=== PATIENT | male | born 1930 | race Caucasian/White ===

== ENCOUNTER 2016-11-23 10:42 | Observation (INO) | payer MEDICARE ==
[~2016-11-23 10:42] MED LIST: ACETAMINOPHEN500 M4 PO; ALENDRONATE SOD70 M2 PO; ANTIVERT25 M1 PO; ASPIRIN EC81 MG PO; CALCIUM 500 +1 EA11 PO; COMBIVENT RESPIM4 G1 INH; FIBER0.52 GM PO; FLOMAX0.4 M1 PO; IRON325 M3 PO; LISINOPRIL10 M1 PO; LOPRESSOR50 M1 PO; MOTRIN IB200 M1 PO; MYSOLINE50 M3 PO; OMEPRAZOLE20 M3 PO; OXYBUTYNIN CHLOR5 M2 PO; PREDNISONE20 M1 PO; PRESERVISION A1 EAC3 PO; PRESERVISION A1 EAC5 PO; PRILOSEC20 M1 PO; STOOL SOFTENER100 M2 PO; VIBRAMYCIN100 M1 PO; ZOCOR80 M1 PO
[2016-11-23 11:27] LABS: BASO % 0.2 % (0-2); EOS % 5.5 % (0-7); EOSINOPHIL ABSOLUTE COUNT 0.5 tho/cmm (0.0-0.7); HCT-HEMATOCRIT 35.3 % (36.0-53.5); HGB-HEMOGLOBIN 11.3 gm/dl (13.5-17.0); IMMATURE GRANULOCYTES ABSOLUTE 0.01 tho/cmm (0-0.03); IMMATURE GRANULOCYTES PERCENT 0.1 % (0-0.3); LYMPH ABSOLUTE COUNT 1.2 tho/cmm (0.8-4.5); MCH (MEAN CORPUSCULAR HGB) 27.1 pg (28.0-32.0); MCV (MEAN CELL VOLUME) 84.7 fl (82.0-96.0); MEAN PLATELET VOLUME 10.5 cmc (9.4-12.4); MONOCYTE ABSOLUTE COUNT 0.6 tho/cmm (0.0-1.2); NEUTROPHIL ABSOLUTE COUNT 6.8 tho/cmm (1.6-8.0); NEUTROPHIL-AUTOMATED 6.8 tho/cmm (1.6-8.0); NEUTROPHILS % 74.2 % (40-80); PLATELET COUNT 198 tho/cmm (150-450); RED BLOOD COUNT 4.17 mil/cmm (4.40-5.70); RED CELL DISTRIBUTION WIDTH 14.3 % (12.4-16.4); WHITE BLOOD COUNT 9.1 tho/cmm (4.0-10.0)
[2016-11-23] MEDS ORDERED: VITAMIN D3400 UNI4 PO (11:29)
[2016-11-23] MEDS ORDERED: ELIGARD22.5 MG SC (11:30)
[2016-11-23] MEDS ORDERED: ANTIFUNGAL CREA14 G1 TP (11:32)
[2016-11-23] MEDS ORDERED: OXYBUTYNIN CHLO10 M1 PO (11:36)
[2016-11-23] MEDS ORDERED: ARTIFICIAL TEAR1510 EACH EYE (11:37)
[2016-11-23 11:45] LABS: ANION GAP 11 mmol/L (0-20); BLOOD UREA NITROGEN 19 mg/dl (6-24); CALCIUM 8.8 mg/dl (8.5-10.5); CARBON DIOXIDE-VENOUS 27 mmol/L (22-32); CHLORIDE 107 mmol/l (96-110); CREATININE 1.12 mg/dl (0.60-1.30); GLUCOSE 112 mg/dL (70-110); POTASSIUM 4.3 mmol/L (3.7-5.1); SODIUM 141 mmol/L (135-145); eGFR VALUE FOR BLACK 70 mL/Min
[2017-05-08] MEDS ORDERED: DERMAFUNGAL113 GM TOP (16:57)
[2017-05-08] MEDS ORDERED: PROCTOFOAM-HC 110 G1 PR (17:01)
[2017-05-08] MEDS ORDERED: ZADITOR5 M2 OP (17:03)
[2017-05-08] MEDS ORDERED: NITROGLYCERIN0.4 M2 PO (17:07)
[2017-05-08] MEDS ORDERED: THERMAZENE50 GM TOP (17:11)
[2017-05-08] MEDS ORDERED: TRIAMCINOLONE A15 G4 TOP (17:12)
[2017-05-08] MEDS ORDERED: [UNRECOGNIZED DRUG - OTHER] TOP (17:13)
[2017-05-08] MEDS ORDERED: FIBER LAX625 M1 PO (17:14)
== END 2016-11-24 16:45 ==
LOC: EDMED 10:42 → EMR2 14:23 → CAR1 16:15
PROVIDERS: Emergency Medicine; ADMIT Internal Medicine
DX: R07.9 Chest pain, unspecified (principal); I25.10 Atherosclerotic heart disease of native coronary artery without angina pectoris; I10 Essential (primary) hypertension; E78.5 Hyperlipidemia, unspecified; J44.9 Chronic obstructive pulmonary disease, unspecified; Z79.82 Long term (current) use of aspirin; Z79.83 Long term (current) use of bisphosphonates; Z79.899 Other long term (current) drug therapy; Z87.891 Personal history of nicotine dependence; Z85.038 Personal history of other malignant neoplasm of large intestine; Z85.46 Personal history of malignant neoplasm of prostate; Z82.49 Family history of ischemic heart disease and other diseases of the circulatory system; Z95.5 Presence of coronary angioplasty implant and graft; Z90.49 Acquired absence of other specified parts of digestive tract; Z98.1 Arthrodesis status; Z98.890 Other specified postprocedural states
CPT/HCPCS: A9500; G0378; J2785; Q9967